=== PATIENT | female | born 1965 | race Caucasian/White ===

== ENCOUNTER 2023-08-10 21:28 | Emergency (ER) | payer BC, MEDICAID ==
[2023-08-10] MEDS ORDERED: Doxycycline 100 MG Cap PO ONE (22:12)
== END 2023-08-10 22:32 | disposition home or self-care (01) ==
LOC: JP.ED 21:28
DX: S40.862A Insect bite (nonvenomous) of left upper arm, initial encounter (principal); W57.XXXA Bitten or stung by nonvenomous insect and other nonvenomous arthropods, initial encounter
CPT/HCPCS: 99281; A9270